=== PATIENT | female | born 1985 | race Two or more races ===

== ENCOUNTER 2021-05-13 08:38 | Emergency (ER) | payer SELFPAY ==
[~2021-05-13] VITALS: Ht 154.9 cm; Wt 101.3 kg
--- NOTE | 2021-05-13 08:52 | PHYS DOC ---
Past Medical History Past Medical History: No Pertinent History Past Surgical History: No Surgical History Smoking Status: Never Smoker Alcohol Use: None Drug Use: None Adult General Chief Complaint Chief Complaint: OTHER COMPLAINTS HPI HPI Patient is a 35 year old female who presents requesting medication refill. The patient estimates that she is just under 20 weeks gestation with her fourth . She has been followed at [facility] but does not have an appointment in the near future. She has gestational diabetes and takes metformin 1000 mg twice daily. She ran out of her medications 2 days earlier. She does not have any other complaints today. She is requesting ultrasound to make sure that "my baby is okay." No fever. Denies urinary symptoms. No chest pain, palpitations, lightheadedness, dizziness. Eating and drinking normally. No nausea or vomiting. Review of Systems Review of Systems Constitutional: Denies fever or chills Eyes: Denies change in visual acuity, redness, or eye pain HENT: Denies nasal congestion or sore throat Respiratory: Denies cough or shortness of breath Cardiovascular: No additional information not addressed in HPI GI: Denies abdominal pain, nausea, vomiting, bloody stools or diarrhea : Denies dysuria or hematuria Musculoskeletal: Denies back pain or joint pain Integument: Denies rash or skin lesions Neurologic: Denies headache, focal weakness or sensory changes Endocrine: Denies polyuria or polydipsia All other systems were reviewed and found to be within normal limits, except as documented in this note. Allergies Allergies Allergies Coded Allergies Type Severity Reaction Last Updated Verified No Known Drug Allergies 05/02/14 No Physical Exam Physical Exam Constitutional: Well developed, well nourished, no acute distress, non-toxic appearance. HENT: bilateral external ears normal, oropharynx moist, no oral exudates, nose normal. Eyes: PERRLA, EOMI, conjunctiva normal Neck: Normal range of motion, Cardiovascular:Heart rate regular rhythm, no murmur Lungs & Thorax: Bilateral breath sounds clear to auscultation Abdomen: Abdomen is soft, appropriately gravid, nontender Skin: Warm, dry, no erythema, no rash. Back: Normal range of motion Extremities: No tenderness, no cyanosis, no clubbing, ROM intact, no edema Neurologic: Alert and oriented X 3 Current Patient Data Lab Values Laboratory Tests Test 05/13/21 09:01 05/13/21 09:09 POC Urine HCG, Qualitative Hcg positive (Negative) Glucose (Fingerstick) 124 mg/dL (70-99) H EKG EKG [] Radiology/Procedures Radiology/Procedures [] Course & Med Decision Making Course & Med Decision Making Pertinent Labs and Imaging studies reviewed. (See chart for details) ED summary: Patient seen in the emergency department as documented above. Overall nontoxic. She has no specific related complaints. Has been out of her metformin for 2 days. Blood glucose level was checked in the ER and found to be 124. Bedside ultrasound completed and revealing for normal-ap pearing intrauterine with heart tones in the 140s and very frequent movements. No indication for stat formal ultrasound today based on her presentation and complaints. Urinalysis completed in the ER no infection. Patient is stable for discharge home. She is given refill of her metformin and recommended to continue her normal regimen and follow-up with primary OB. Halie Disclaimer Halie Disclaimer This electronic medical record was generated, in whole or in part, using a voice recognition dictation system. Departure Departure Impression: Primary Impression: Gestational diabetes Disposition: 01 HOME / SELF CARE / HOMELESS Condition: GOOD Referrals: NO PCP (PCP) Scripts Metformin Hcl (METFORMIN HCL) 1,000 Mg Tablet 1000 MG PO BID for ANTI-DIABETIC for 30 Days, #60 TAB 1 Refill Prov: LILIANE PLATT DO 05/13/21 LILIANE PLATT DO May 13, 2021 08:52
[2021-05-13 09:08] LABS: BILIRUBIN,URINE SMALL (NEG); CLARITY,URINE CLEAR; COLOR,URINE AMBER; NITRITE,URINE NEGATIVE (NEG); PROTEIN,URINE NEGATIVE (NEG-TRACE)
[2021-05-13 09:22] LABS: BACTERIA,URINE FEW /HPF (0-FEW)
[2021-05-13] MEDS ORDERED: METF10007 PO (09:27)
[2021-05-13 10:01] VITALS: BP 108/62
== END 2021-05-13 10:02 | disposition home or self-care (01) ==
LOC: ER 08:38
DX: O24.415 Gestational diabetes mellitus in pregnancy, controlled by oral hypoglycemic drugs (principal); Z3A.20 20 weeks gestation of pregnancy; Z76.0 Encounter for issue of repeat prescription
CPT/HCPCS: 81001; 81025; 82962; 99283